=== PATIENT | female | born 1980 | race Caucasian/White ===

== ENCOUNTER 2023-10-06 15:49 | Emergency (ER) | payer BC, SELFPAY ==
[2023-10-06 15:58] VITALS: BP 145/90; PULSE 97; RESP 18; TEMP 36.6; O2SAT 98; BMI 34.1
--- NOTE | 2023-10-06 16:11 | ED_ITS ---
HPI - Chest Pain General Time Seen by Provider: 16:11 Date Seen: 10/06/23 Chief Complaint: Chest Pain Stated Complaint: chest pain Time Seen by Provider: 10/06/23 16:04 Source: patient, RN notes reviewed and old records reviewed Mode of arrival: ambulatory Limitations: no limitations History of Present Illness HPI narrative: 43 year old female who presents today with about a week of intermittent chest pain. Patient notes chest pain that sometimes is in the middle of chest, sometimes into the back, sometimes in the shoulders, last about 15-20 minutes at a time. Not associated with activity, no associated nausea, vomiting, or shortness of breath with this. No relieving or exacerbating symptoms. No leg pain or swelling, no abdominal pain. Related Data Home Medications Medication Instructions Recorded Confirmed norgestimate-ethinyl estradiol 1 tab PO 07/03/22 07/03/22 0.18 mg/0.215mg/0.25mg-35 mcg(28)tablet (Tri-Sprintec (28)) Allergies Allergy/AdvReac Type Severity Reaction Status Date / Time No Known Drug Allergies Allergy Verified 07/03/22 12:00 [facility] Social History Smoking Status: Never smoker Exam Narrative Exam Narrative: General: Well-developed and well-nourished, no acute distress Head: Atraumatic and normocephalic Eyes: Pupils are equal reactive, extraocular motions intact, conjunctiva clear ENT: External nose and ears are normal, posterior pharynx without erythema or exudate Neck: No midline cervical tenderness, full spontaneous range of motion the neck, trachea midline, no adenopathy Heart: Regular rate and rhythm no murmurs or thrills Lungs: Clear to auscultation bilaterally without wheezes or crackles Abdomen: Soft, nontender, nondistended with active bowel sounds Musculoskeletal: No tenderness, deformity, or edema Neurologic: Awake, alert, and oriented x3, no gross focal neurologic deficits, cranial nerves intact as tested Psych: Mood and affect are appropriate Skin: No rashes Const Vital Signs, click to edit/add: Vital Signs - 24 hr 10/06/23 15:58 Temperature 97.8 F Pulse Rate [Left Pulse Oximeter] 97 Respiratory Rate 18 Blood Pressure [Left Upper Arm] 145/90 H Pulse Oximetry 98 Oxygen Delivery Method Room Air Course Course ED Course: Patient seen and examined, reviewed prior urgent care note from June 2022 when patient was diagnosed with right leg superficial phlebitis and treated with ibuprofen and warm compresses. Patient presents today with migratory chest pain going on for the last week or so. Initial EKG is reassuring. Pain does not seem to be pleuritic but she does get some palpitations and lightheadedness with this, D-dimer is ordered. Labs ordered to evaluate for other causes of symptoms as well as troponin to evaluate for acute coronary syndrome or myocardial infarction. Toradol ordered along with fluids and will monitor. Reevaluation(s) Time of Reevaluation #1: 17:37 Reevaluation #1: Labs ordered and independently interpreted by me with negative troponin, normal CBC, normal basic panel, negative D-dimer, normal BNP, normal chest x-ray. Patient feels better in the emergency department. Discussed possible causes for her symptoms. No evidence for congestive heart failure, pulmonary embolism, or myocardial infarction. Symptoms may be related to acute coronary syndrome but are not related to activity in her migratory in character which is little unusual, patient should follow up with primary care for stress test as an outpatient. Can take Tylenol or ibuprofen as needed for symptoms, return to emergency department precautions discussed. Vital Signs Vital signs: Initial Vital Signs Temperature 97.8 F 10/06/23 15:58 Temperature Source Temporal Artery Scan 10/06/23 15:58 Pulse Rate 97 10/06/23 15:58 Pulse Rhythm Regular 10/06/23 15:58 Pulse Strength 3+ Normal 10/06/23 15:58 Respiratory Rate 18 10/06/23 15:58 Blood Pressure 145/90 H 10/06/23 15:58 Blood Pressure Mean 108 H 10/06/23 15:58 Blood Pressure Position Supine 10/06/23 15:58 Pulse Oximetry 98 10/06/23 15:58 Oxygen Delivery Method Room Air 10/06/23 15:58 Vital Signs Temperature 97.8 F 10/06/23 15:58 Pulse Rate 97 10/06/23 15:58 Respiratory Rate 18 10/06/23 15:58 Blood Pressure 145/90 H 10/06/23 15:58 Pulse Oximetry 98 10/06/23 15:58 Oxygen Delivery Method Room Air 10/06/23 15:58 Temperature 97.8 F 10/06/23 15:58 Pulse Rate 97 10/06/23 15:58 Respiratory Rate 18 10/06/23 15:58 Blood Pressure 145/90 H 10/06/23 15:58 Pulse Oximetry 98 10/06/23 15:58 Oxygen Delivery Method Room Air 10/06/23 15:58 MDM - Chest Pain Lab Data Labs: Lab Results 10/06/23 10/06/23 Range/Units 16:23 16:35 WBC 10.74 (4.50-11.00) K/uL RBC 5.06 (4.00-5.20) m/uL Hgb 14.4 (12.0-16.0) gm/dL Hct 44.7 (33.0-51.0) % MCV 88 (80-100) fL MCH 29 (26-34) pg MCHC 32 (32-36) gm/dL RDW Coeff of Hugh 12.6 (11.5-15.5) % Plt Count 384 (140-440) K/uL Neut % (Auto) 82.0 H (42.0-72.0) % Lymph % (Auto) 12.3 L (20-44) % [place] % (Auto) 3.7 (0.0-11.0) % Eos % (Auto) 0.4 (0.0-7.0) % Baso % (Auto) 0.6 (0.0-3.0) % Neut # (Auto) 8.80 H (1.7-7.0) K/uL Lymph # (Auto) 1.30 (0.90-2.90) K/uL [place] # (Auto) 0.40 (0.00-0.90) K/UL Eos # (Auto) 0.04 (0.00-0.50) K/uL Baso # (Auto) 0.06 (0.00-0.30) K/uL Abs Immat Gran (auto) 0.11 (0.00-0.30) K/uL Imm/Tot Granulo (auto) 1.0 % D-Dimer Quant (PE/DVT) < 0.27 (0.00-0.50) ug/ml Sodium 138 (135-149) mmol/L Potassium 3.9 (3.6-5.1) mmol/L Chloride 106 (96-114) mmol/L Carbon Dioxide 24 (20-32) mmol/L Anion Gap 8 (7-15) mEq/L BUN 17 (5-24) mg/dL Creatinine 0.8 (0.5-1.5) mg/dL Estimated Creat Clear 80.75 Estimated GFR 93 ml/min Glucose 116 H (60-115) mg/dL Calcium 9.0 (8.4-10.6) mg/dL Magnesium 2.2 (1.5-2.6) mg/dL NT-Pro-B Natriuret Pep 33 pg/mL POC Troponin I 0.00 L (0.01-0.04) ng/ml Discharge Plan Discharge Clinical Impression: Atypical chest pain Patient Disposition: Home, Self-Care Condition: Stable Instructions: Chest Pain (ED) Additional Instructions: Follow-up with your primary care provider to discuss further evaluation Activity Level: Activity as Tolerated Prescriptions: No Action norgestimate-ethinyl estradiol [Tri-Sprintec (28)] 0.18/0.215/0.25 mg-35 mcg (28) tablet 1 tab PO Follow Up/Referrals: Primo Kilpatrick, [facility] [Primary Care Provider] - Stand Alone Forms: [employer] Info Instructions
--- NOTE | 2023-10-06 16:22 | XR_ITS ---
Patient: TRISH CAROLINA Facility:?[facility] Patient ID:?[id number] Site Patient ID:?[id number]. Site :?[id number] Study:?XRay-Chest 2 VIEWS-10/06/2023 5:04:50 PM Ordering Physician:ELICEO Final Report: Indication: Unknown/none provided Technique: PA/lateral chest Comparison: None Findings/impression : The lungs are symmetrically inflated. There is no pneumothorax, pleural effusion or focal consolidation. The trachea is midline. The cardiac silhouette is normal. Soft tissues are unremarkable. There are mild degenerative changes within the midthoracic spine. Dictated by Paolo Diehl MD @ 10/06/2023 5:26:22 PM Signed by:?Paolo Diehl MD @10/06/2023 5:26:22 PM (Electronic Signature)
[2023-10-06 16:50] LABS: Basophils Absolute Auto 0.06 K/uL (0.00-0.30); Basophils Percent Auto 0.6 % (0.0-3.0); Eosinophils Absolute Auto 0.04 K/uL (0.00-0.50); Eosinophils Percent Auto 0.4 % (0.0-7.0); Hematocrit 44.7 % (33.0-51.0); Hemoglobin* 14.4 gm/dL (12.0-16.0); Immature Granulocytes Abs Auto 0.11 K/uL (0.00-0.30); Lymphocytes Percent Auto 12.3 % (20-44); Mean Corpuscular HGB Conc 32 gm/dL (32-36); Mean Corpuscular Hemoglobin 29 pg (26-34); Mean Corpuscular Volume 88 fL (80-100); Monocytes Percent Auto 3.7 % (0.0-11.0); Platelet Count* 384 K/uL (140-440); RDW Coefficient of Variation % 12.6 % (11.5-15.5); Red Blood Count 5.06 m/uL (4.00-5.20); White Blood Count* 10.74 K/uL (4.50-11.00)
[2023-10-06 16:59] LABS: Slide Review Reflex No
[2023-10-06 17:10] LABS: Chloride* 106 mmol/L (96-114); Potassium* 3.9 mmol/L (3.6-5.1); Sodium* 138 mmol/L (135-149)
[2023-10-06 17:12] LABS: Creatinine* 0.8 mg/dL (0.5-1.5); Est. Creatinine Clearance* 80.75; Estimated Glomerular Filt Rate 93 ml/min
[2023-10-06 17:13] LABS: Anion Gap 8 mEq/L (7-15); Blood Urea Nitrogen* 17 mg/dL (5-24); Carbon Dioxide* 24 mmol/L (20-32); Glucose* 116 mg/dL (60-115)
[2023-10-06 17:29] LABS: D Dimer Quantitative* < 0.27 ug/ml (0.00-0.50)
[2023-10-06 17:30] LABS: Magnesium* 2.2 mg/dL (1.5-2.6); NT Pro B Type NatriureticPept* 33 pg/mL
== END 2023-10-06 17:47 | disposition home or self-care (01) ==
PROVIDERS: Emergency Provider Family Medicine; PCP Physician Assistant Medical
DX: R07.9 Chest pain, unspecified (principal)
CPT/HCPCS: 36415; 71046; 80048; 83735; 83880; 84484; 85025; 85379; 93005; 99284; 99285